=== PATIENT | female | born 1980 | race Caucasian/White ===

== ENCOUNTER 2017-06-09 14:35 | Emergency (ER) | payer OTHER ==
[~2017-06-09] VITALS: Ht 157.5 cm; Wt 71.8 kg
[~2017-06-09 14:35] MED LIST: NOHOMEMEDS; XARTEMIS XR 7.1 EACH PO; ZOFRAN ODT8 MG PO
[2017-06-09 15:20] LABS: HEMATOCRIT 41.3 % (36.0-46.0); HEMOGLOBIN 14.2 G/DL (11.9-15.5); MCHC 34.4 G/DL (30.0-36.0); MCV 87.3 FL (83-99); PLATELET COUNT 273 K/uL (156-360); RBC DIS.WIDTH-SD 38.4 % (39-53); RED BLOOD COUNT 4.73 M/uL (3.80-5.20); WHITE BLOOD COUNT 8.1 K/uL (4.1-10.2)
[2017-06-09 15:32] LABS: CHLORIDE 105 mEq/L (99-109); POTASSIUM 3.8 mEq/L (3.7-5.4); SODIUM 141 mEq/L (136-147)
[2017-06-09 15:34] LABS: GLUCOSE 108 mg/dL (70-99)
[2017-06-09 15:37] LABS: CREATININE 0.6 mg/dL (0.6-1.3); GFR ESTIMATE (CALCULATED) > 59 mL/min/
[2017-06-09 15:38] LABS: UREA NITROGEN (BUN) 3 mg/dL (9-23)
[2017-06-09 15:45] LABS: TROP-I INTERPRETATION NEGATIVE; TROPONIN-I < 0.01 ng/mL (0.0-0.30)
[2017-06-09 16:34] LABS: QUANTITATIVE HCG < 4.0 MIU/ML
[2017-06-09 19:05] LABS: TROP-I INTERPRETATION NEGATIVE; TROPONIN-I < 0.01 ng/mL (0.0-0.30)
[2017-06-09] MEDS ORDERED: ATARAX,VISTARIL50 MG PO (19:21)
[2017-06-09] MEDS ORDERED: MOTRIN800 MG PO (20:03)
[2017-06-09 20:11] VITALS: BP 121/79
== END 2017-06-09 20:12 | disposition home or self-care (01) ==
LOC: EME 14:35
PROVIDERS: Physician Assistant Medical
DX: F41.9 Anxiety disorder, unspecified (principal); R07.9 Chest pain, unspecified; Z87.891 Personal history of nicotine dependence; Z88.5 Allergy status to narcotic agent
CPT/HCPCS: 71046; 80048; 84484; 84702; 85027; 87502; 93005; 99281; 99284